=== PATIENT | female | born 2000 | race Hispanic/Latino ===

== ENCOUNTER 2022-04-13 13:07 | Emergency (ER) | payer OTHER, SELFPAY ==
[2022-04-13 13:13] VITALS: BP 127/68; PULSE 77; RESP 22; TEMP 36.6; O2SAT 98
--- NOTE | 2022-04-13 13:34 | DI.US.S_ITS ---
PROCEDURE: US OB <= 14 WEEKS FETUS INDICATIONS: 1 EPISODE HEAVY VAGINAL BLEEDING OUTSIDE/PRIOR DATING DATA: Last menstrual period (LMP): January 16, 2022 LMP-based estimated date of delivery (FELIPE): October 23, 2022 First dating scan (date and location): April 13, 2022 Estimated date of delivery (FELIPE) from first dating scan: October 18, 2022 The calculations are made using the ultrasound FELIPE of October 18, 2022 TECHNIQUE: Real-time scanning was performed of the fetus and maternal pelvic organs, with image documentation. Endovaginal scanning was also performed to better visualize the fetus and maternal ovaries. COMPARISON: None. FINDINGS: Embryo: Single living intrauterine identified. Placenta is anterior without evidence of placenta previa. 4.1 x 0.7 x 5.0 centimeter subchorionic hemorrhage. BPD: 13 weeks 2 days. HC: 13 weeks 1 day. AC: 13 weeks 3 days. FL 12 weeks 6 days. Composite gestational age based on current ultrasound: 13 weeks 1 day. Heart rate: 152 beats per minute. Maternal organs: Ovaries are within normal limits. IMPRESSION: Single living intrauterine with ultrasound estimated gestational age of 13 weeks 1 day. 4.1 x 0.7 x 5.0 centimeter subchorionic hemorrhage. Dictated by: Sydnee Guaman MD, PhD on 04/13/2022 at 14:16 Approved by: Sydnee Guaman MD, PhD on 04/13/2022 at 14:20
[2022-04-13] MEDS: ACETAMINOPHEN 325 MG TABLET 975 MG PO (14:25)
[2022-04-13 14:31] LABS: Add Manual Diff / Slide Review NO; Basophils Absolute Auto 0 /uL (0-100); Basophils Percent Auto 0.6 % (0-2); Eosinophils Absolute Auto 100 /uL (0-450); Eosinophils Percent Auto 0.9 % (2-4); Hematocrit 38.4 % (36-46); Hemoglobin 13.4 g/dL (12.0-16.0); Lymphocytes Absolute Auto 1800 /uL (1100-4500); Lymphocytes Percent Auto 22.3 % (25-40); Mean Corpuscular Hemoglobin 30.7 PG (26-34); Mean Corpuscular Volume 87.6 fL (80-100); Monocytes Absolute Auto 500 /uL (0-900); Monocytes Percent Auto 5.7 % (3-14); Neutrophils Absolute Auto 5800 /uL (1500-7000); Neutrophils Percent Auto 70.5 % (50-75); Platelet Count 254 X10^3/uL (150-400); Red Blood Cell Count 4.38 X10^6/uL (4.0-5.2); Red Cell Distribution Width 12.9 % (11.6-14.8); White Blood Cell Count 8.2 X10^3/uL (4.5-11.0)
[2022-04-13 14:42] LABS: Alanine Aminotransferase 14 IU/L (<35); Albumin 3.9 g/dL (3.5-5.0); Albumin Globulin Ratio 1.1 (1.0-2.8); Alkaline Phosphatase 100 U/L (38-126); Aspartate Aminotransferase 24 IU/L (14-36); BUN Creatinine Ratio 12.9 (6-22); Bilirubin Total 0.3 mg/dL (0.2-1.3); Blood Urea Nitrogen 8 mg/dL (7-17); Calcium 8.8 mg/dL (8.4-10.2); Carbon Dioxide 22 mmol/L (22-32); Chloride 105 mmol/L (98-107); Estimated Glomerular Filt Rate > 60 mL/min (>60); Globulin 3.6 g/dL (1.7-4.1); Glucose 92 mg/dL (70-100); HEMOLYSIS < 15 (0-50); Potassium 3.6 mmol/L (3.4-5.1); Sodium 136 mmol/L (137-145); Total Protein 7.5 g/dL (6.3-8.2)
--- NOTE | 2022-04-13 14:44 | ED_ITS ---
HPI - <RENAY Parra - Last Filed: 04/13/22 15:33> General Chief complaint: OB/Uterine Contractions Stated complaint: Thinks miscarriage- 12 wks Time Seen by Provider: 04/13/22 13:34 Source: patient Mode of arrival: Ambulatory History of Present Illness HPI Narrative: This is a 21-year-old female presents to the emergency department with concern about vaginal bleeding during . Patient is a with last menstrual period on January 16, 2022 who has had vaginal spotting during in the past, most recently one month ago. 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 Patient is establishing care with [facility] tomorrow and 1400 hours for a new patient appointment. She has been taking vitamins, denies any nausea, vomiting, fever, recent illness, dysuria, back pain, or any at other concern at this time. Patient states that she has had a healthy thus far. Related Data Allergies Allergy/AdvReac Type Severity Reaction Status Date / Time No Known Drug Allergies Allergy Verified 04/13/22 15:43 Review of Systems <RENAY Parra - Last Filed: 04/13/22 15:33> Review of Systems Narrative: General: denies fever, chills Head/Neck: denies headache, neck pain Eyes: denies visual changes, eye pain Cardio: denies chest pain, palpitations Respiratory: denies shortness of breath, cough GI: denies abdominal pain, nausea, vomiting, or diarrhea : denies dysuria, hematuria or flank pain, endorses vaginal bleeding which started just prior to arrival MSK: denies new joint pain, muscle weakness or swelling Skin: denies rash, itching or wound Neuro: denies numbness, tingling, dizziness Exam <RENAY Parra Last Filed: 04/13/22 15:33> Narrative Exam Narrative: Independently reviewed vitals signs and nursing notes. General: cooperative, comfortable, in no acute distress, well groomed Head: atraumatic, symmetrical facial expressions Neck: supple Eyes: equal round and reactive, EOMI, conjunctiva normal Nose: nares patent, no rhinorrhea Mouth/Throat: moist mucus membranes Cardiovascular: regular rate and rhythm, no peripheral edema, warm extremities Respiratory: normal effort, able to speak in complete sentences, no audible wh eezing, stridor, or rales. No retractions or tachypnea. GI: abdomen soft, gravid, nontender to palpation, nondistended, no masses, no exquisite tenderness with exam, without guarding or rebound. MSK: moves all extremities, neurovascularly intact, no weakness, normal tone PROGRAMMING SPECIALIST: Pelvic exam deferred, patient is having a mild to moderate amount of brownish red vaginal bleeding. Skin: brisk capillary refill, no rash, no erythema Neuro: normal speech and cognition, A&O x3 Psych: mental status is grossly normal, congruent mood, normal affect, pleasant and cooperative Initial Vital Signs Initial Vital Signs: Vital Signs Temperature 97.8 F 04/13/22 13:13 Pulse Rate 77 04/13/22 13:13 Respiratory Rate 22 04/13/22 13:13 Blood Pressure 127/68 04/13/22 13:13 Pulse Oximetry 98 04/13/22 13:13 Course <RENAY Parra - Last Filed: 04/13/22 15:33> Orders Ordered: ED Orders 04/13/22 13:34 US OB <= 14 weeks fetus Stat 04/13/22 14:20 CBC Auto Diff [Complete Blood Count AUTO DIFF] Stat CMP [Comprehensive Metabolic Panel] Stat HCG Quantitative /Beta subunit Stat 04/13/22 14:43 UA Complete [Urinalysis and Microscopic] Stat Discontinued Medications Acetaminophen (Acetaminophen 325 Mg Tablet) 975 mg PO NOW ONE Stop: 04/13/22 13:35 Last Admin: 04/13/22 14:25 Dose: 975 mg Documented by: DEBORAH Vital Signs Vital signs: Vital Signs - 8 hr 04/13/22 13:13 04/13/22 15:43 Temperature 97.8 F 98.7 F Pulse Rate 77 65 Respiratory Rate 22 18 Blood Pressure 127/68 109/57 L Pulse Oximetry 98 98 MDM - OB/Uterine Contractions <RENAY Parra - Last Filed: 04/13/22 15:33> Lab Data Result diagrams: 04/13/22 14:20 04/13/22 14:20 Labs: Lab Results 04/13/22 04/13/22 04/13/22 Range/Units 14:20 14:20 14:43 WBC 8.2 (4.5-11.0) X10^3/uL RBC 4.38 (4.0-5.2) X10^6/uL Hgb 13.4 (12.0-16.0) g/dL Hct 38.4 (36-46) % MCV 87.6 (80-100) fL MCH 30.7 (26-34) PG MCHC 35.0 (30-36) % RDW 12.9 (11.6-14.8) % Plt Count 254 (150-400) X10^3/uL Neut % (Auto) 70.5 (50-75) % Lymph % (Auto) 22.3 L (25-40) % [place] % (Auto) 5.7 (3-14) % Eos % (Auto) 0.9 L (2-4) % Baso % (Auto) 0.6 (0-2) % Neut # (Auto) 5800 (5996-7917) /uL Lymph # (Auto) 1800 (8746-3793) /uL [place] # (Auto) 500 (0-900) /uL Eos # (Auto) 100 (0-450) /uL Baso # (Auto) 0 (0-100) /uL Sodium 136 L (137-145) mmol/L Potassium 3.6 (3.4-5.1) mmol/L Chloride 105 (98-107) mmol/L Carbon Dioxide 22 (22-32) mmol/L BUN 8 (7-17) mg/dL Creatinine 0.62 (0.52-1.04) mg/dL Estimated GFR > 60 (>60) mL/min BUN/Creatinine Ratio 12.9 (6-22) Glucose 92 (70-100) mg/dL Calcium 8.8 (8.4-10.2) mg/dL Total Bilirubin 0.3 (0.2-1.3) mg/dL AST 24 (14-36) IU/L ALT 14 (<35) IU/L Alkaline Phosphatase 100 (38-126) U/L Total Protein 7.5 (6.3-8.2) g/dL Albumin 3.9 (3.5-5.0) g/dL Globulin 3.6 (1.7-4.1) g/dL Albumin/Globulin Ratio 1.1 (1.0-2.8) HCG, Quant 574210 mIU/mL Urine Color Yellow Urine Appearance Sl cloudy Urine pH 5.0 (4.5-8.0) Ur Specific [place] 1.020 (1.000-1.035) Urine Protein Negative (Negative) Urine Glucose (UA) Negative (Negative) g/dL Urine Ketones 1+ H (NEGATIVE) Urine Occult Blood 3+ H (Negative) Urine Nitrate Negative (Negative) Urine Bilirubin Negative (NEGATIVE) Urine Urobilinogen 0.2 (0.2) E.U./dL Ur Leukocyte Esterase Negative (NEGATIVE) Urine RBC 30-100/hpf H (0-5/HPF) Urine WBC None seen (0-5/HPF) Ur Squamous Epith Cells 1-5 /hpf (0-5/HPF) Urine Bacteria None seen (None) Ur Culture Indicated? Cult not indicated Imaging Data US - OB: Radiologist's Impression: PROCEDURE:? US OB <= 14 WEEKS FETUS ? INDICATIONS:? 1 EPISODE HEAVY VAGINAL BLEEDING ? OUTSIDE/PRIOR DATING DATA:? Last menstrual period (LMP):? January 16, 2022 LMP-based estimated date of delivery (FELIPE):? October 23, 2022 First dating scan (date and location):? April 13, 2022 Estimated date of delivery (FELIPE) from first dating scan:? October 18, 2022 The calculations are made using the ultrasound FELIPE of October 18, 2022 ? TECHNIQUE:? Real-time scanning was performed of the fetus and maternal pelvic organs, with image documentation.? Endovaginal scanning was also performed to better visualize the fetus and maternal ovaries.? ? COMPARISON:? None. ? FINDINGS:? ? Embryo:? Single living intrauterine identified.? Placenta is anterior without evidence of placenta previa.? 4.1 x 0.7 x? 5.0 centimeter subchorionic hemorrhage. ? BPD:? 13 weeks 2 days. HC:? 13 weeks 1 day. AC:? 13 weeks 3 days. FL 12 weeks 6 days. Composite gestational age based on current ultrasound: 13 weeks 1 day. ? Heart rate:? 152 beats per minute. ? Maternal organs:? Ovaries are within normal limits. ? ? IMPRESSION:? ? Single living intrauterine with ultrasound estimated gestational age of 13 weeks 1 day. ? 4.1 x 0.7 x 5.0 centimeter subchorionic hemorrhage. ? ? ? Dictated by: Sydnee Guaman MD, PhD on 04/13/2022 at 14:16 ? ? Approved by: Sydnee Guaman MD, PhD on 04/13/2022 at 14:20 ? MDM Narrative Medical decision making narrative: 21-year-old female who is approximately a 13 weeks with last menstrual period on January 16, 2022, she presents to the emergency department with concern over vaginal bleeding which started while she was driving in her vehicle today. 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 She has had spotting during previously, it has been approximately one month since this happened. She said that she soaked through her underwear and pants and some was on the seat of the vehicle she was driving. She has had a pad in place since th is happened, and has not soaked through that. Pelvic ultrasound shows a living intrauterine fetus gestational age of 13 weeks one day and a 4.1 x 0.7 x 5.0 cm subchorionic hemorrhage. Patient has an appointment with OB tomorrow to establish care with an OBGYN. A copy of her ultrasound was provided for her to take to this appointment. Patient's labs are reassuring, no anemia, hemoglobin 13.4, hematocrit 38.4, no leukocytosis, no electrolyte abnormality, hCG level is [id number]. UA shows ketones and blood but is negative for leukocyte esterase and nitrates. Patient understands to follow-up with her OBGYN at [facility] tomorrow at 1400 hours and will bring her results from today's visit with her. Patient is appropriate and amenable to discharge home. Vital signs are stable on repeat examination is unremarkable. Patient has been informed of results. Patient has been given strict return to ER precautions for any new or worsening symptoms. Patient understands to follow up closely with outpatient providers as instructed. Patient understands plan and agrees to discharge home. All questions and concerns answered at this time. Discharge Plan Departure Patient Disposition: Home Clinical Impression: 13 weeks gestation of Subchorionic hemorrhage in second trimester Qualifiers: Fetus number: single or unspecified fetus Qualified Code(s): O41.8X20 - Other specified disorders of amniotic fluid and membranes, second trimester, not applicable or unspecified Instructions: DI for Vaginal Bleeding During , Early Bleeding Activity Restrictions/Additional Instructions: *You have been diagnosed with a living intrauterine estimated at 13 weeks one day gestation with a normal heartrate. You have a subchorionic hemorrhage which is measured at 4.1 x 0.7 x 5.0 centimeters. Your HCG level today is [id number]. This is a normal number at this stage . Welcome to your 2nd trimester, congratulations, I hope you do not have more scares. Please follow-up with your OBGYN tomorrow at the appointment. Please take your ultrasound report with you, they may do lab work again, please take Tylenol as needed for cramping or headache. Please stay hydrated, rest and take the next couple of days off of work. Thank you for trusting us with your care, I hope that you feel better soon. *What to do: *Please continue to take your regular medications as directed. [ ] New medication prescriptions sent to your pharmacy: [ ] [ ] New medication written as a paper prescription [x ] No new medications given *Please follow up with your primary care provider in 2-3 days, call for an appointment. Let them know you were seen in the Emergency Department and that we asked that you be seen for follow-up. We will electronically transmit a record of today's note if your PCP is in our system *If you do not have a primary care provider please contact [phone] to establish care with one of the [facility] primary care providers. *Return to Emergency Department if you should have any new, worsening or concerning symptoms, such as [fever greater than 101F, chills, worsening pain, persistent vomiting or other bothersome symptoms] Stand Alone Forms: Work Release Note
[2022-04-13 14:48] LABS: Appearance Urine UA SL CLOUDY; Bilirubin Urine UA NEGATIVE (NEGATIVE); Color Urine UA YELLOW; Glucose Urine UA NEGATIVE (Negative); Ketones Urine UA 1+ (NEGATIVE); Leukocyte Esterase Urine UA NEGATIVE (NEGATIVE); Nitrite Urine UA NEGATIVE (Negative); Occult Blood Urine UA 3+ (Negative); Protein Urine UA NEGATIVE (Negative); Urobilinogen Urine UA 0.2 E.U./dL (0.2)
[2022-04-13 14:52] LABS: RBC Urine 30-100/HPF (0-5/HPF); WBC Urine None Seen (0-5/HPF)
[2022-04-13 14:53] LABS: Bacteria Urine None Seen; Culture Indicated Urine Cult Not Indicated; Squamous Epithelial Cell Urine 1-5 /HPF (0-5/HPF)
[2022-04-13 15:22] LABS: HCG Quantitative /Beta subunit 130170 mIU/mL
[2022-04-13 15:43] VITALS: BP 109/57; PULSE 65; RESP 18; TEMP 37.1; O2SAT 98
== END 2022-04-13 15:47 | disposition home or self-care (01) ==
PROVIDERS: Emergency Provider Nurse Practitioner Critical Care Medicine
DX: O41.8X20 Other specified disorders of amniotic fluid and membranes, second trimester, not applicable or unspecified (principal); Z3A.13 13 weeks gestation of pregnancy
CPT/HCPCS: 76801; 80053; 81001; 84702; 85025; 99283